=== PATIENT | female | born 1980 | race Caucasian/White ===

== ENCOUNTER 2019-06-06 19:59 | Outpatient (CLI) | payer MEDICAID ==
[2019-06-06 20:32] LABS: CREATININE,URINE 58.9 mg/dL; PROTEIN/CREATININE RATIO,URINE 0.3 (<=0.2)
== END 2019-06-06 20:00 | disposition home or self-care (01) ==
LOC: LAB 19:59
PROVIDERS: ATTEND Midwife
DX: Z34.93 Encounter for supervision of normal pregnancy, unspecified, third trimester (principal)
CPT/HCPCS: 82570; 84156